=== PATIENT | female | born 1980 | race Caucasian/White ===

== ENCOUNTER → 2023-10-17 13:18 | Outpatient (REF) | payer OTHER, SELFPAY | LOC: MRI 3T 13:18 | PROVIDERS: ATTENDING PHYSICIAN Surgery; FAMILY PHYSICIAN Family Medicine | DX: Z15.01 Genetic susceptibility to malignant neoplasm of breast (principal); R92.2 Inconclusive mammogram | CPT/HCPCS: 77049; A9585 ==

== ENCOUNTER → 2023-10-24 12:51 | Outpatient (REF) | payer OTHER, SELFPAY | LOC: WDC 12:51 | PROVIDERS: ATTENDING PHYSICIAN Surgery; FAMILY PHYSICIAN Family Medicine | DX: R92.8 Other abnormal and inconclusive findings on diagnostic imaging of breast (principal) | CPT/HCPCS: 76642 ==

== ENCOUNTER → 2024-06-02 07:40 | Outpatient (REF) | payer OTHER, SELFPAY ==
[2024-06-02 08:36] LABS: % Basophils 0.8 % (0-2); % Eosinophils 3.4 % (0-6); % Immature Granulocytes 0.5 % (0-0.5); % Lymphocytes 37.4 % (20.5-51.1); % Monocytes 6.6 % (1.7-9.3); % Neutrophils 51.3 % (42.2-75.2); Absolute Basophils 0.1 10^3/uL (0-0.2); Absolute Eosinophils 0.2 10^3/uL (0-0.7); Absolute Lymphocytes 2.4 10^3/uL (1.2-3.4); Absolute Monocytes 0.4 10^3/uL (0.1-0.6); Absolute Neutrophils 3.4 10^3/uL (1.4-6.5); Hemoglobin 11.3 g/dL (12.0-16.0); Mean Corp Hgb Conc. 31.4 g/dL (33.0-37.0); Mean Corpuscular Hgb 26.6 pg (27.0-31.0); Mean Corpuscular Volume 84.7 fL (81.0-99.0); Mean Platelet Volume 10.2 fL (7.4-10.4); Nucleated Red Blood Cells % 0 %; Platelet Count 269 10^3/uL (130-400); Red Blood Cell Count 4.25 10^6/uL (4.20-5.40); Red Cell Dist. Width 13.9 % (11.5-14.5); White Blood Cell Count 6.5 10^3/uL (4.8-10.8)
[2024-06-02 08:59] LABS: ALT (SGPT) 47 U/L (0-35); AST (SGOT) 32 U/L (14-36); Albumin 4.4 g/dl (3.5-5.0); Alkaline Phosphatase 88 U/L (38-126); Blood Urea Nitrogen 14 mg/dl (7-17); Calcium 9.7 mg/dl (8.4-10.2); Carbon Dioxide 27 mmol/L (22-30); Chloride 106 mmol/L (98-107); Glucose 92 mg/dl (70-99); HDL Cholesterol 45 mg/dl; Iron 93 ug/dl (37-170); LDL Cholesterol, Calculated 148 mg/dl; Potassium 4.6 mmol/L (3.5-5.1); Sodium 144 mmol/L (135-145); Total Bilirubin 0.5 mg/dl (0.2-1.3); Total Cholesterol 221 mg/dl (50-199); Total Protein 7.3 g/dl (6.3-8.2); Triglyceride 142 mg/dl (10-149); Very Low Density Lipoprotein 28 mg/dl (0-30); eGFR > 60.00
[2024-06-02 09:12] LABS: Percent Saturation 26 % (20-50); Total Iron Binding Capacity 355 ug/dl (265-497)
[2024-06-02 09:33] LABS: TSH 3.04 uIU/ml (0.47-4.68)
[2024-06-02 09:37] LABS: Ferritin 9.3 ng/ml (6.24-137)
== END ==
LOC: REG 07:40
PROVIDERS: ATTENDING PHYSICIAN Family Medicine; FAMILY PHYSICIAN Nurse Practitioner Acute Care
DX: Z00.00 Encounter for general adult medical examination without abnormal findings (principal); D50.9 Iron deficiency anemia, unspecified; Z13.1 Encounter for screening for diabetes mellitus
CPT/HCPCS: 36415; 80053; 80061; 82728; 83540; 83550; 84443; 85025